=== PATIENT | female | born 1995 | race Caucasian/White ===

== ENCOUNTER 2017-06-24 13:09 | Emergency (ER) | payer OTHER ==
[2017-06-24 14:30] VITALS: BP 121/84
--- NOTE | 2017-06-24 15:11 | UC ---
UC General HPI - HPI Summary HPI Summary: pt is c/o a "bad coug", sinus pressure and congestion plus yellow sputum for 4 days. sometimes the cough makes her feel sob. denies hx asthma, fever, cp, bodyaches. - History of Current Complaint Hx Obtained From: Patient Hx Last Menstrual Period: 06/18/17 Onset/Duration: Gradual Onset Timing: Constant Onset Severity: Moderate Current Severity: Moderate Pain Intensity: 4 - chest with cough Associated Signs & Symptoms: Positive: Cough, SOB. Negative: Chest Pain, Diaphoresis, Fever <Gosia Valdivia - Last Filed: 06/24/17 15:12> <Jen Andersen - Last Filed: 06/24/17 17:43> - History of Current Complaint Chief Complaint: UCGeneralIllness Stated Complaint: COUGH/SINUS Time Seen by Provider: 06/24/17 15:00 - Allergy/Home Medications Allergies/Adverse Reactions: Allergies Allergy/AdvReac Type Severity Reaction Status Date / Time amoxicillin Allergy Rash Verified 06/24/17 14:22 clindamycin Allergy Flushing Verified 06/24/17 14:22 Sulfa (Sulfonamide Allergy Rash Verified 06/24/17 14:22 Antibiotics) Home Medications: Home Medications Dm/PE/Acetaminophen/Doxylamine [Cold Multi-Symptom Night Liq] 06/24/17 [History ] PMH/Surg Hx/FS Hx/Imm Hx - Additional Past Medical History Additional PMH: HEALTHY - Surgical History Surgical History: None - Family History Known Family History: Positive: None - Social History Occupation: Employed Full-time Lives: With Family Alcohol Use: None Substance Use Type: None Smoking Status (MU): Never Smoked Tobacco Household Exposure Type: Cigarettes - Immunization History Vaccination Up to Date: Yes <Gosia Valdivia - Last Filed: 06/24/17 15:12> Review of Systems Constitutional: Negative Skin: Negative Eyes: Negative ENT: Nasal Discharge, Sinus Congestion Respiratory: Shortness Of Breath, Cough Cardiovascular: Negative Gastrointestinal: Negative Genitourinary: Negative Motor: Negative Neurovascular: Negative Musculoskeletal: Negative Neurological: Negative Psychological: Negative Is Patient Immunocompromised?: No All Other Systems Reviewed And Are Negative: Yes <Gosia Valdivia - Last Filed: 06/24/17 15:12> Physical Exam Triage Information Reviewed: Yes Appearance: Well-Appearing Vital Signs: Initial Vital Signs Temp 99.1 F 06/24/17 14:23 Pulse 90 06/24/17 14:23 Resp 16 06/24/17 14:23 BP 121/84 06/24/17 14:23 Pulse Ox 100 06/24/17 14:23 Vital Signs Reviewed: Yes Eyes: Positive: Conjunctiva Clear ENT: Positive: Pharynx normal, Nasal congestion, Nasal drainage - CLEAR, TMs normal. Negative: Sinus tenderness Neck: Positive: Supple, Nontender, No Lymphadenopathy Respiratory: Positive: Lungs clear, Normal breath sounds, No respiratory distress Cardiovascular: Positive: RRR, No Murmur Abdomen Description: Positive: Nontender, No Organomegaly, Soft Bowel Sounds: Positive: Present Neurological: Positive: Alert Psychological: Positive: Age Appropriate Behavior Skin Exam: Normal <Gosia Valdivia - Last Filed: 06/24/17 15:12> Vital Signs: Initial Vital Signs Temp 99.1 F 06/24/17 14:23 Pulse 90 06/24/17 14:23 Resp 16 06/24/17 14:23 BP 121/84 06/24/17 14:23 Pulse Ox 100 06/24/17 14:23 <Jen Andersen - Last Filed: 06/24/17 17:43> Course/Dx - Course Course Of Treatment: hx/exam c/w uri and bronchitis. no indication for antibiotics. will tx with ventolin mdi and tessalon perles with close f/u. - Differential Dx - Multi-Symptom Provider Diagnoses: URI, bronchitis <Gosia Valdivia - Last Filed: 06/24/17 15:12> Discharge <Gosia Valdivia - Last Filed: 06/24/17 15:12> <Jen Andersen - Last Filed: 06/24/17 17:43> - Discharge Plan Condition: Stable Disposition: HOME Prescriptions: Albuterol HFA INHALER* [Ventolin HFA Inhaler*] 2 puff INH Q6H 7 Days #1 mdi Benzonatate CAP* [Tessalon 100 MG CAP*] 100 mg PO TID 3 Days #10 cap Patient Education Materials: Upper Respiratory Infection (ED), Acute Bronchitis (ED) Referrals: Rei Barakat MD [Primary Care Provider] - 5 Days Attestation Statement User Type: Provider - I was available for consult. This patient was seen by the [facility]. The patient was not presented to, seen by, or examined by me. Nicci <Jen Andersen - Last Filed: 06/24/17 17:43>
== END 2017-06-24 15:24 | disposition home or self-care (01) ==
LOC: UCCORT 13:09
DX: J06.9 Acute upper respiratory infection, unspecified (principal); J40 Bronchitis, not specified as acute or chronic; Z77.22 Contact with and (suspected) exposure to environmental tobacco smoke (acute) (chronic)
CPT/HCPCS: 99212; G0463

== ENCOUNTER 2019-01-29 12:29 | Emergency (ER) | payer OTHER ==
[2019-01-29 13:22] VITALS: BP 116/72
--- NOTE | 2019-01-29 13:40 | UC ---
Complaint Female HPI - HPI Summary HPI Summary: Patient is a 23-year-old female, at 27 weeks, here with urinary symptoms. Patient's had 1 week of urinary frequency and urgency. Patient's had no fever , chills, nausea, vomiting, abdominal pain, flank pain, dysuria, vaginal bleeding, vaginal discharge. Patient's had no issues in her . Patient continues to feel baby move. Patient has a complex urine infection history with rehospitalizations for pyelonephritis is here with blossoming in October. Patient is seeing a urologist for this but will not be worked up until after she delivers her baby. Medications reviewed - History Of Current Complaint Chief Complaint: UCGU Stated Complaint: URINARY COMPLAINT Time Seen by Provider: 01/29/19 13:03 Hx Obtained From: Patient Hx Last Menstrual Period: 06/18/17 Pain Intensity: 0 - Allergies/Home Medications Allergies/Adverse Reactions: Allergies Allergy/AdvReac Type Severity Reaction Status Date / Time amoxicillin Allergy Rash Verified 01/29/19 13:21 clindamycin Allergy Flushing Verified 01/29/19 13:21 Sulfa (Sulfonamide Allergy Rash Verified 01/29/19 13:21 Antibiotics) Home Medications: Home Medications Pnv No.95/Ferrous Fum/Folic AC [ Multivitamin Tablet] 1 each PO DAILY [History Confirmed 01/29/19] PMH/Surg Hx/FS Hx/Imm Hx Previously Healthy: Yes - Surgical History Surgical History: None - Family History Known Family History: Positive: None, Non-Contributory - Social History Alcohol Use: None Substance Use Type: None Smoking Status (MU): Never Smoked Tobacco Household Exposure Type: Cigarettes - Immunization History Vaccination Up to Date: Yes Review of Systems All Other Systems Reviewed And Are Negative: Yes Constitutional: Negative: Fever, Chills Respiratory: Negative: Cough Cardiovascular: Negative: Chest Pain Gastrointestinal: Negative: Abdominal Pain, Vomiting, Diarrhea, Nausea Genitourinary: Positive: Frequency, Urgency. Negative: Dysuria, Hematuria Physical Exam - Summary Physical Exam Summary: Vital Signs Reviewed: Yes A+Ox3, no distress Eyes: Conjunctiva Clear, PERRL. EOM intact and full ENT: Hearing grossly normal TM x 2 clear, moist, uvula midline, no exudate, no erythema Neck: Positive: Supple Respiratory: Positive: No respiratory distress, No accessory muscle use + CTA throughout no w/r Cardiovascular: RRR nl s1, s2 no m/r CBT <2 sec abd gravid uterus with no tenderness. No CVA tenderness Musculoskeletal Exam: [place] x 4 without difficulty Strength Intact, ROM Intact Neurological: Positive: Alert, + sensation throughout Psychological: Positive: Normal Response To Family Skin: no rash, no ecchymosis Vital Signs: Initial Vital Signs Temp 99.4 F 01/29/19 13:17 Pulse 73 01/29/19 13:17 Resp 18 01/29/19 13:17 BP 116/72 01/29/19 13:17 Pulse Ox 100 01/29/19 13:17 Complaint Female Dx - Course Course Of Treatment: Patient is here with symptoms consistent with cystitis. Patient does not clinically have pyelonephritis. Patient had a UA performed which showed esterase. Patient be treated with 7 days of Keflex. Patient's urine was sent for culture. Patient was encouraged helped her primary care doctor in 1-3 days. - Differential Dx/Diagnosis Provider Diagnosis: Cystitis Discharge ED - Sign-Out/Discharge Documenting (check all that apply): Patient Departure All imaging exams completed and their final reports reviewed: No Studies - Discharge Plan Condition: Stable Disposition: HOME Prescriptions: Cephalexin CAP* [Keflex CAP*] 500 mg PO TID 7 Days #21 cap Patient Education Materials: Urinary Tract Infection in (ED) Referrals: Rei Barakat MD [Primary Care Provider] - Additional Instructions: Please take your medications as prescribed Please go to the emergency department if you have fever, worsening back pain, vomiting, any other concerning symptoms Please call your primary care doctor to have follow-up in one to 3 days. - Billing Disposition and Condition Condition: STABLE Disposition: Home
== END 2019-01-29 13:45 | disposition home or self-care (01) ==
LOC: UCCORT 12:29
DX: O23.12 Infections of bladder in pregnancy, second trimester (principal); Z3A.27 27 weeks gestation of pregnancy; Z88.0 Allergy status to penicillin; Z88.1 Allergy status to other antibiotic agents; Z88.2 Allergy status to sulfonamides
CPT/HCPCS: 81003; 87077; 87086; 99212; G0463